=== PATIENT | male | born 1945 | race Caucasian/White ===

== ENCOUNTER 2017-06-26 16:02 | Emergency (ER) | payer OTHER ==
[2017-06-26 16:22] VITALS: BP 175/91
--- NOTE | 2017-06-26 17:04 | UC ---
Vinod Presley Gabriel, scribed for Zenon Marx MD on 06/26/17 at 1639 . Throat Pain/Nasal Pedro HPI - HPI Summary HPI Summary: This patient is a 72 year old F presenting to [facility] with a chief complaint of a cough since yesterday. Patient reports nasal congestion and sinus pressure. Patient denies myalgia, fever, sore throat, and ear pain. Pt is prone to sinus infections. - History of Current Complaint Chief Complaint: UCGeneralIllness Stated Complaint: SINUS CONGESTION Time Seen by Provider: 06/26/17 16:33 Hx Obtained From: Patient Onset/Duration: Lasting Days, Still Present Severity: Mild Pain Intensity: 0 Pain Scale Used: 0-10 Numeric Associated Signs & Symptoms: Positive: Negative - myalgia, fever, sore throat, and ear pain, Sinus Discomfort, Nasal Discharge - Allergies/Home Medications Allergies/Adverse Reactions: Allergies Allergy/AdvReac Type Severity Reaction Status Date / Time No Known Allergies Allergy Verified 06/26/17 16:22 Home Medications: Home Medications Nebivolol TAB (NF) [Bystolic TAB (NF)] 10 mg PO DAILY 06/26/17 [History Confirmed 06/26/17] Telmisartan/Amlodipine [Telmisartan-Amlodipine 80-10] 80 mg PO DAILY 06/26/17 [ History Confirmed 06/26/17] metFORMIN* [Glucophage 1000 MG TAB *] 1,000 mg PO BID 06/26/17 [History Confirmed 06/26/17] PMH/Surg Hx/FS Hx/Imm Hx Endocrine History: Diabetes Cardiovascular History: Hypertension - Surgical History Surgical History: Yes Surgery Procedure, Year, and Place: knee replacement - Family History Known Family History: Positive: Hypertension, Diabetes Negative: Cardiac Disease, Renal Disease, Respiratory Disease, Seizure Disorder, Blood Disorder - Social History Lives: With Family Alcohol Use: Rare Substance Use Type: None Smoking Status (MU): Never Smoked Tobacco Review of Systems Constitutional: Negative - fever ENT: Nasal Discharge, Sinus Congestion, Other - sinus pressure All Other Systems Reviewed And Are Negative: Yes Physical Exam Triage Information Reviewed: Yes Vital Signs: Initial Vital Signs Temp 98.3 F 06/26/17 16:18 Pulse 87 06/26/17 16:18 Resp 20 06/26/17 16:18 BP 175/91 06/26/17 16:18 Pulse Ox 98 06/26/17 16:18 Vital Signs Reviewed: Yes - Additional Comments General: well-appearing, no pain distress Skin: warm, color reflects adequate perfusion, dry Head: normal Eyes: EOMI, ARI ENT: rhinorrhea Neck: supple, nontender Respiratory: CTA, breath sounds present Cardiovascular: RRR Abdomen: soft, nontender Bowel: present Musculoskeletal: normal, strength/ROM intact Neurological: normal, sensory/motor intact, A&O x3 Psychological: affect/mood appropriate Throat Pain/Nasal Course/Dx - Course Assessment/Plan: WE DISCUSSED VIRAL VERSES BACTERIAL INFECTIONS. PATIENT PREFERS TO START ANTIBIOTICS. BP noted and advised to follow up with PCP - Differential Dx/Diagnosis Provider Diagnoses: SINUSITIS, HTN Discharge - Discharge Plan Condition: Stable Disposition: HOME Prescriptions: Amoxicillin/Clavulanate TAB* [Augmentin TAB 875*] 875 mg PO BID #20 tab Patient Education Materials: Sinusitis (ED) Referrals: [facility] [Outside] Additional Instructions: FOLLOW UP WITH YOUR DOCTOR. GET RECHECKED FOR ANY WORSENING OF YOUR CONDITION OR QUESTIONS OR CONCERNS. Your blood pressure was elevated during today's visit. Please follow up with your primary care provider in 1-2 weeks. The documentation as recorded by the Vinod shanks Gabriel accurately reflects the service I personally performed and the decisions made by me, Zenon Marx MD.
== END 2017-06-26 16:55 | disposition home or self-care (01) ==
LOC: UCEAST 16:02
DX: J32.9 Chronic sinusitis, unspecified (principal); I10 Essential (primary) hypertension; E11.9 Type 2 diabetes mellitus without complications; Z79.84 Long term (current) use of oral hypoglycemic drugs; Z96.659 Presence of unspecified artificial knee joint
CPT/HCPCS: 99202; G0463